=== PATIENT | male | born 2000 | race Caucasian/White ===

== ENCOUNTER 2022-02-28 12:47 | Outpatient (REF) | payer OTHER, SELFPAY ==
--- NOTE | 2022-02-28 15:46 | PFT_ITS ---
FLOWS: FEV1 124% of predicted at 5.65 L. FVC 114% predicted at 6.30 L. FEV1 to FVC ratio of 0.90. No bronchodilator response. LUNG VOLUMES: Total lung capacity 109% of predicted at 7.51 L. Diffusion capacity is normal. IMPRESSION: No obstructive or restrictive ventilatory defect. No bronchodilator response. Normal pulmonary function test. MD ADELAIDA Green/AIDEN / [id number]
== END 2022-02-28 12:48 | disposition home or self-care (01) ==
LOC: HO.RESP 12:47
PROVIDERS: PCP Family Medicine; Visit Provider Family Medicine
DX: Z02.3 Encounter for examination for recruitment to armed forces (principal)
CPT/HCPCS: 94060; 94727; 94729

== ENCOUNTER 2022-04-19 12:52 | Outpatient (REF) | payer OTHER, SELFPAY ==
--- NOTE | 2022-04-19 17:23 | PFT_ITS ---
This 21-year-old gentleman was sent for methacholine challenge test. Baseline spirometry shows FVC 117%, FEV1 118%. FEV1/FVC ratio 84, and [id number] 115%. There was no significant response to bronchodilator therapy. This baseline spirometry was normal without any response to bronchodilator. Methacholine challenge was given in gradually increasing dilutions. Patient had normal flow volumes, and there was no significant decrease in any of the flow volumes during all these 6 challenges. IMPRESSION: Negative Methacholine test. MD VLAD Leo/MODL / [id number]
== END 2022-04-19 12:53 | disposition home or self-care (01) ==
LOC: HO.RESP 12:52
PROVIDERS: PCP Family Medicine; Visit Provider Family Medicine
DX: Z13.83 Encounter for screening for respiratory disorder NEC (principal); Y99.1 Military activity
CPT/HCPCS: 94070; J7674